=== PATIENT | female | born 1955 | race African-American/Black ===

== ENCOUNTER 2017-02-04 08:52 | Emergency (ER) | payer OTHER, MEDICARE ==
[~2017-02-04 08:52] MED LIST: BACLOFEN20 MG PO; COPAXONE20 MG/1 ML SC; DIAZEPAM2 MG PO
--- NOTE | 2017-02-04 09:44 | ED ANKLE/FOOT INJURY COMPLAINT ---
History of Present Illness General Chief Complaint: Foot or Ankle Injury Stated Complaint: RT FOOT PAIN S/P FALL Source: patient, family Exam Limitations: no limitations Allergies Coded Allergies: MDX - No Known Drug Allergies - Nkd (NO KNOWN DRUG ALLERGIES - NKDA) (05/10/14) Reconcile Medications Baclofen 10 MG TABLET 1.5-2 TAB PO 4 TIMES/DAY MS (Reported) Diazepam 2 MG TABLET 1 TAB PO BID MS (Reported) Estrogen,Con/M-Progest Acet (Prempro 0.3 MG-1.5 MG Tablet) (Unknown Strength) TABLET (Unknown Dose) PO DAILY HORMONE REPLACEMENT (Reported) Glatiramer Acetate (Copaxone) 20 MG/ML SYRINGE 1 INJ SC DAILY MS (Reported) Triage Note: PER PT HX OF MS GOT OUT OF BED TO GO TO BR AT 0430 AND FELL, CO PAIN TO RT FOOT AND SWELLING. Triage Nurses Notes Reviewed? yes HPI: Ms Arvizu is a 61-year-old female with past medical history of multiple sclerosis who presented to the emergency department on 02/04/2017 complaining of right-sided foot pain. Patient states that she was in her normal state of health until this morning at approximately 4:30 AM when she woke up to use the restroom. Patient states that she had a fall and has injured her right foot. At the time of the fall she denies any head or trauma to any other part of her body. She states that she was on the floor for a few seconds at which point her was able to pick her up. More she comes in concerned that she may fractured her foot and owing to her extensive exercise regimen for multiple sclerosis should like to rule out fracture. Denies any fever denies chills denies, nausea denies vomiting. Pain at this moment fluctuates between a 8 out of 10 to 10 out of 10 when she is ambulating. Patient normally ambulates using the assitance of a cane. (JASBIR DUMONT,[facility]) Vital Signs & Intake/Output Vital Signs & Intake/Output Vital Signs Date Time Temp Pulse Resp B/P B/P Pulse O2 O2 Flow FiO2 Mean Ox Delivery Rate 02/04 1141 98.3 84 15 110/74 100 Room Air 02/04 1008 99 Room Air 02/04 0857 97.3 80 20 109/73 96 Room Air Past History Travel History Traveled to [place] past 21 day No Medical History Any Pertinent Medical History? see below for history Neurological: multiple sclerosis EENT: NONE Cardiovascular: NONE Respiratory: NONE Gastrointestinal: NONE Hepatic: NONE Renal: NONE Musculoskeletal: OSTEOPOROSIS Psychiatric: NONE Endocrine: NONE Surgical History Surgical History: non-contributory Psychosocial History Who do you live with Spouse What is your primary language [place] Tobacco Use: Never used Family History Hx Contributory? Yes (Hx Of MS) (MOHAN MARTELL MD) Review of Systems Review of Systems Constitutional: Reports: see HPI. Denies: chills, diaphoresis, fever, malaise, weakness. (MOHAN MARTELL MD) Physical Exam Physical Exam General Appearance: well developed/nourished, no apparent distress, alert, awake Head: atraumatic Eyes: Bilateral: PERRL, EOMI. Ears, Nose, Throat: normal pharynx Leg/Knee/Thigh Left: normal range of motion Leg/Knee/Thigh Right: Normal ROM. Right Foot Swollen. No Edema. Mild tenderness with supination and pronation. Foot Left: normal inspection, normal range of motion, evidence of injury Foot Right: evidence of injury, tenderness, limited range of motion, Normal ROM. Swollen. Tenderness appreciated on suppination and pronation. (MOHAN MARTELL MD) Progress Differential Diagnosis: fracture, sprain, contusion Plan of Care: Orders Procedure Date/time Status XRY-FOOT COMPLETE, RIGHT 02/04 934 Active Departure Departure Disposition: HOME OR SELF CARE Condition: Stable Clinical Impression Primary Impression: Sprain of foot, right Qualifiers: Encounter type: initial encounter Qualified Code: S93.601A - Unspecified sprain of right foot, initial encounter Referrals: KYA KAPADIA MD (PCP/Family) Additional Instructions: Please follow-up with your primary care physician in the next 7 days. Please inform your primary care physician of this visit to the emergency department and the treatment of care administered you. Should you experience a worsening pain or have an additional fall please come back to the emergency department for additional workup. Coninue to bare weight as tolerated. Please continue taking your medications like normal. Departure Forms: Customer Survey General Discharge Information (MOHAN MARTELL MD) Resident Co-Sign Statement Statement: ED Attending supervision documentation- [X] I saw and evaluated the patient. I have also reviewed all the pertinent lab results and diagnostic results. I agree with the findings and the plan of care as documented in the Resident's documentation. [] I have reviewed the ED Record and agree with the Resident's documentation. [] Additions or exceptions (if any) to the Resident's note and plan are summarized below: [] (DELANO DUMONT,ALEX Drummond)
--- NOTE | 2017-02-04 09:56 | RADIOLOGY REPORT ---
EXAMINATION: XR FOOT, RIGHT CLINICAL INFORMATION: Pain. Fall. COMPARISON: None TECHNIQUE: AP, lateral, and oblique views of the right foot. FINDINGS: Normal bony mineralization. There is no evidence of acute fracture or dislocation. Mild degenerative changes noted in multiple interphalangeal joints and first MTP joint. Nonspecific calcification noted adjacent to the shaft of the proximal phalanx third toe. No bony abnormality. IMPRESSION: No acute osseous abnormality. Degenerative changes.
[2017-02-04] MEDS ORDERED: DIAZEPAM2 M1 PO (09:57)
[2017-02-04] MEDS ORDERED: BACLOFEN10 M1 PO (09:58)
[2017-02-04] MEDS ORDERED: PREMPRO 0.3 MG1 EACH PO (09:59)
[2017-02-04 11:41] VITALS: BP 110/74
== END 2017-02-04 11:41 ==
LOC: ERH 08:52
DX: S93.601A Unspecified sprain of right foot, initial encounter (principal); W19.XXXA Unspecified fall, initial encounter; Y92.9 Unspecified place or not applicable; Y93.9 Activity, unspecified
CPT/HCPCS: 73630-RT